=== PATIENT | female | born 1950 | race Caucasian/White ===

== ENCOUNTER 2017-04-02 15:31 | Inpatient (IN) | payer BC, MEDICARE ==
[~2017-04-02] VITALS: Ht 162.6 cm; Wt 66.7 kg
[2017-04-02] VITALS (16 sets, daily range): BP systolic 103; BP diastolic 56; PULSE 133; TEMP 99.4; O2SAT 92–95
[2017-04-02] MEDS ORDERED: TRAVATAN Z 2.52.5 ML OU (16:05)
[2017-04-02] MEDS ORDERED: CRESTOR20 MG PO (16:39)
[2017-04-02] MEDS ORDERED: UROCIT-K 5540 MG/TAB PO (16:41)
[2017-04-02] MEDS ORDERED: TRIUMEQ TAB PO (16:42)
[2017-04-02] MEDS ORDERED: ZANTAC 150MG T150 MG PO (16:43)
[2017-04-02] MEDS ORDERED: ASPIRIN 32325 MG/TAB PO (16:44)
[2017-04-02] MEDS ORDERED: COMBIGAN 0.2%-0.5 ML OU (16:45)
[2017-04-02 17:04] LABS: HEMATOCRIT 42.2 % (37.0-47.0); HEMOGLOBIN 14.6 g/dl (12.5-16.0); MEAN CELL VOLUME 100 fl (80.0-100.0); MEAN CORPUSCULAR HEMOGLOBIN 34 pg (27.0-31.0); MEAN CORPUSCULAR HGB CONC 35 g/dl (33.0-37.0); PLATELET COUNT 168 K/mm3 (130-400); RED BLOOD COUNT 4.24 M/mm3 (4.10-5.30); REDCELL DISTRIBUTION WIDTH-CV 12.2 % (11.5-14.5); WHITE BLOOD COUNT 7.1 K/mm3 (4.8-10.8)
[2017-04-02 17:08] LABS: ADD PATHOLOGY DIFF REVIEW NO
[2017-04-02 17:12] LABS: ADJUSTED CALCIUM 9.5 mg/dL (8.4-10.2); ALBUMIN 4.2 gm/dL (3.5-5.0); BILIRUBIN,TOTAL 1.2 mg/dL (0.0-1.0); C-REACTIVE PROTEIN 0.6 mg/dL (0.0-0.9); CALCIUM 9.7 mg/dL (8.4-10.2); CREATININE, serum 1.32 mg/dL (0.52-1.25); POTASSIUM 3.7 mmol/L (3.4-5.0); TOTAL PROTEIN 7.3 gm/dL (6.4-8.2)
[2017-04-02 17:31] LABS: PH 9 (5-8); SQUAMOUS EPITHELIAL 0-2 /hpf; URINE APPEARANCE Clear; URINE BACTERIA None Seen /hpf; URINE BILIRUBIN Negative (NEGATIVE); URINE BLOOD Negative (NEGATIVE); URINE COLOR Yellow; URINE GLUCOSE Negative (NEGATIVE); URINE KETONE Negative (NEGATIVE); URINE RBC 0-2 /hpf; URINE UROBILINOGEN Negative (NEGATIVE)
[2017-04-02 17:44] LABS: BAND 25 % (0-10); BASOPHIL 1 % (0-2); EOSINOPHIL 1 % (0-4); METAMYELOCYTE 2 % (0-0); NEUTROPHILS 64 % (42.0-75.2); PLATELET ESTIMATE NORMAL (NORMAL); TOTAL CELLS COUNTED 100
[2017-04-02 17:46] LABS: TOXIC GRANULATION PRESENT
[2017-04-02] MEDS ORDERED: LEVAQUIN 750MG750 M1 PO (18:02)
[2017-04-02] MEDS ORDERED: ZOFRAN ODT4 MG PO (18:02)
[2017-04-02 19:07] LABS: INFLUENZA B NEGATIVE
[2017-04-03] VITALS (1352 sets, daily range): BP systolic 75–115; BP diastolic 49–75; PULSE 70–118; TEMP 97–99.4; O2SAT 81–98
[2017-04-03] MEDS ORDERED: VITAMIN D32000 IU PO (00:25)
[2017-04-03 06:12] LABS: MEAN CELL VOLUME 101 fl (80.0-100.0); MEAN CORPUSCULAR HGB CONC 34 g/dl (33.0-37.0); MEAN PLATELET VOLUME 9.6 fl (7.4-10.4); PLATELET COUNT 121 K/mm3 (130-400); RED BLOOD COUNT 3.55 M/mm3 (4.10-5.30); WHITE BLOOD COUNT 19.6 K/mm3 (4.8-10.8)
[2017-04-03 06:14] LABS: HEMATOCRIT 35.9 % (37.0-47.0); HEMOGLOBIN 12.2 g/dl (12.5-16.0); MEAN CORPUSCULAR HEMOGLOBIN 34 pg (27.0-31.0)
[2017-04-03 06:15] LABS: ADD PATHOLOGY DIFF REVIEW NO
[2017-04-03 06:19] LABS: ADJUSTED CALCIUM 7.8 mg/dL (8.4-10.2); ALBUMIN 2.6 gm/dL (3.5-5.0); BILIRUBIN,TOTAL 0.8 mg/dL (0.0-1.0); CALCIUM 6.7 mg/dL (8.4-10.2); CREATININE, serum 1.37 mg/dL (0.52-1.25); TOTAL PROTEIN 5.2 gm/dL (6.4-8.2)
[2017-04-03 06:27] LABS: POTASSIUM 2.7 mmol/L (3.4-5.0)
[2017-04-03] MEDS ORDERED: VIRAMUNE XR400 MG PO (08:34)
[2017-04-03] MEDS ORDERED: EPZICOM PO (08:35)
[2017-04-03 08:52] LABS: BAND 31 % (0-10); METAMYELOCYTE 4 % (0-0); MYELOCYTE 9 % (0-0); NEUTROPHILS 54 % (42.0-75.2); PLATELET ESTIMATE NORMAL (NORMAL); TOTAL CELLS COUNTED 100
[2017-04-03 13:48] LABS: ARTERIAL BLD GAS O2 SATURATION 91.3 % (92-100); ARTERIAL BLD GAS TCO2 CT 17.3; ARTERIAL BLOOD GAS BASE EXCESS -6.4 (-2-2); ARTERIAL BLOOD GAS HCO3 16.5 meq/L (22-26); ARTERIAL BLOOD GAS PHT 7.41 C (7.35-7.45); ARTERIAL BLOOD GAS PO2 55.8 mmHg (80-100); ARTERIAL BLOOD GAS PO2T 55.8 (80-100); ARTERIAL BLOOD GAS pH 7.41 (7.35-7.45); OXYHEMOGLOBIN 90.6 %
[2017-04-03 13:49] LABS: ATS? YES
[2017-04-03 14:23] LABS: HEMOGLOBIN 12.2 g/dl (12.5-16.0); MEAN CELL VOLUME 99 fl (80.0-100.0); MEAN CORPUSCULAR HEMOGLOBIN 35 pg (27.0-31.0); MEAN CORPUSCULAR HGB CONC 35 g/dl (33.0-37.0); MEAN PLATELET VOLUME 9.5 fl (7.4-10.4); PLATELET COUNT 113 K/mm3 (130-400); RED BLOOD COUNT 3.53 M/mm3 (4.10-5.30); REDCELL DISTRIBUTION WIDTH-CV 13.1 % (11.5-14.5)
[2017-04-03 14:26] LABS: HEMATOCRIT 35.1 % (37.0-47.0); WHITE BLOOD COUNT 26.4 K/mm3 (4.8-10.8)
[2017-04-03 14:27] LABS: ADD PATHOLOGY DIFF REVIEW NO
[2017-04-03 14:50] LABS: ADJUSTED CALCIUM 7.8 mg/dL (8.4-10.2); ALANINE AMINOTRANSFERASE 678 U/L (9-52); ALBUMIN 2.7 gm/dL (3.5-5.0); ALKALINE PHOSPHATASE 66 U/L (50-136); ANION GAP 9 mmol/L (7-16); BILIRUBIN,TOTAL 0.8 mg/dL (0.0-1.0); BLOOD UREA NITROGEN 19 mg/dL (7-17); CALCIUM 6.8 mg/dL (8.4-10.2); CARBON DIOXIDE 18 mmol/L (22-30); CHLORIDE 109 mmol/L (98-107); CREATININE, serum 1.28 mg/dL (0.52-1.25); GLUCOSE 177 mg/dL (74-106); POTASSIUM 3.7 mmol/L (3.4-5.0); SODIUM 135 mmol/L (137-145); TOTAL PROTEIN 5.3 gm/dL (6.4-8.2)
[2017-04-03 14:58] LABS: B-TYPE NATRIURETIC PEPTIDE 6190 pg/mL (0-125)
[2017-04-03 15:32] LABS: BILIRUBIN,DIRECT 0.6 mg/dL (0.0-0.4)
[2017-04-03 16:20] LABS: ACETAMINOPHEN < 10 ug/mL (10-30)
[2017-04-03 17:00] LABS: BAND 35 % (0-10); METAMYELOCYTE 3 % (0-0); NEUTROPHILS 53 % (42.0-75.2); PLATELET ESTIMATE DECREASED (NORMAL)
[2017-04-03 17:05] LABS: DOHLE BODIES PRESENT; TOXIC GRANULATION PRESENT
[2017-04-03 17:06] LABS: TOTAL CELLS COUNTED 100
[2017-04-03 17:26] LABS: VENOUS BLOOD GAS BE -6.3 (-4-4); VENOUS BLOOD GAS SAO2 61.9 % (60-80)
[2017-04-03 17:27] LABS: SALICYLATE < 1.0 mg/dL
[2017-04-03 17:27] LABS: VENOUS BLOOD GAS SITE CENTRAL LINE
[2017-04-03 21:03] LABS: VENOUS BLOOD GAS BE -8.2 (-4-4); VENOUS BLOOD GAS SAO2 60.6 % (60-80)
[2017-04-03 21:04] LABS: VENOUS BLOOD GAS SITE CENTRAL LINE
[2017-04-04] VITALS (810 sets, daily range): BP systolic 98–121; BP diastolic 54–73; PULSE 65–93; TEMP 97.6–98.5; O2SAT 78–98
[2017-04-04 01:12] LABS: VENOUS BLOOD GAS BE -6.4 (-4-4); VENOUS BLOOD GAS SAO2 62.2 % (60-80); VENOUS BLOOD GAS SITE CENTRAL LINE
[2017-04-04 04:44] LABS: ARTERIAL BLD GAS O2 SATURATION 94.9 % (92-100); ARTERIAL BLD GAS TCO2 CT 17.4; ARTERIAL BLOOD GAS BASE EXCESS -7.5 (-2-2); ARTERIAL BLOOD GAS HCO3 16.5 meq/L (22-26); ARTERIAL BLOOD GAS PHT 7.37 C (7.35-7.45); ARTERIAL BLOOD GAS PO2 72.5 mmHg (80-100); ARTERIAL BLOOD GAS PO2T 72.5 (80-100); ARTERIAL BLOOD GAS pH 7.37 (7.35-7.45); OXYHEMOGLOBIN 94.3 %
[2017-04-04 04:44] LABS: VENOUS BLOOD GAS BE -7.4 (-4-4); VENOUS BLOOD GAS SAO2 66.2 % (60-80)
[2017-04-04 04:46] LABS: ALLEN TEST YES; ALLENS TEST RESULT PASS; ATS? YES
[2017-04-04 04:46] LABS: VENOUS BLOOD GAS SITE CENTRAL LINE
[2017-04-04 04:55] LABS: MEAN CELL VOLUME 100 fl (80.0-100.0); MEAN CORPUSCULAR HGB CONC 34 g/dl (33.0-37.0); MEAN PLATELET VOLUME 10.3 fl (7.4-10.4); PLATELET COUNT 87 K/mm3 (130-400); RED BLOOD COUNT 3.41 M/mm3 (4.10-5.30); REDCELL DISTRIBUTION WIDTH-CV 13.4 % (11.5-14.5)
[2017-04-04 04:59] LABS: ADD PATHOLOGY DIFF REVIEW NO; HEMATOCRIT 34.2 % (37.0-47.0); HEMOGLOBIN 11.7 g/dl (12.5-16.0); MEAN CORPUSCULAR HEMOGLOBIN 34 pg (27.0-31.0); WHITE BLOOD COUNT 21.4 K/mm3 (4.8-10.8)
[2017-04-04 05:00] LABS: INR 1.9 (0.8-3.0); PROTHROMBIN TIME 21.6 SECONDS (9.7-12.8)
[2017-04-04 05:09] LABS: ADJUSTED CALCIUM 7.9 mg/dL (8.4-10.2); ALBUMIN 2.6 gm/dL (3.5-5.0); CALCIUM 6.8 mg/dL (8.4-10.2); CREATININE, serum 1.02 mg/dL (0.52-1.25); POTASSIUM 3.5 mmol/L (3.4-5.0); TOTAL PROTEIN 5.4 gm/dL (6.4-8.2)
[2017-04-04 09:34] LABS: BAND 56 % (0-10); EOSINOPHIL 1 % (0-4); METAMYELOCYTE 1 % (0-0); NEUTROPHILS 32 % (42.0-75.2); PLATELET ESTIMATE DECREASED (NORMAL); TOTAL CELLS COUNTED 100
[2017-04-04 14:06] LABS: VENOUS BLOOD GAS BE -7.2 (-4-4); VENOUS BLOOD GAS SAO2 73.8 % (60-80); VENOUS BLOOD GAS SITE CENTRAL LINE
[2017-04-04 19:29] LABS: VENOUS BLOOD GAS BE -5.6 (-4-4); VENOUS BLOOD GAS SAO2 67.9 % (60-80)
[2017-04-04 19:30] LABS: VENOUS BLOOD GAS SITE CENTRAL LINE
[2017-04-05] VITALS (80 sets, daily range): BP systolic 106–131; BP diastolic 58–86; PULSE 72–91; TEMP 97.4–98.2; O2SAT 91–97
[2017-04-05 04:53] LABS: BASO # 0.2 (0.0-0.2); BASO % 0.6 % (0.0-2.0); GRAN # 26.3 (1.4-6.5); GRAN % 93.3 % (42.2-75.2); LYMPH # 0.7 (1.2-3.4); LYMPH % 2.4 % (20.0-51.0); MEAN CELL VOLUME 98 fl (80.0-100.0); MEAN CORPUSCULAR HGB CONC 35 g/dl (33.0-37.0); MEAN PLATELET VOLUME 10.6 fl (7.4-10.4); MONO # 0.9 (0.1-0.6); MONO % 3.2 % (1.7-9.3); PLATELET COUNT 106 K/mm3 (130-400); REDCELL DISTRIBUTION WIDTH-CV 13.5 % (11.5-14.5)
[2017-04-05 04:54] LABS: HEMATOCRIT 31.3 % (37.0-47.0); HEMOGLOBIN 10.9 g/dl (12.5-16.0); MEAN CORPUSCULAR HEMOGLOBIN 34 pg (27.0-31.0); WHITE BLOOD COUNT 28.3 K/mm3 (4.8-10.8)
[2017-04-05 04:58] LABS: INR 1.2 (0.8-3.0); PROTHROMBIN TIME 13.8 SECONDS (9.7-12.8)
[2017-04-05 05:03] LABS: ADJUSTED CALCIUM 8.7 mg/dL (8.4-10.2); ALBUMIN 2.5 gm/dL (3.5-5.0); BILIRUBIN,TOTAL 0.5 mg/dL (0.0-1.0); CALCIUM 7.5 mg/dL (8.4-10.2); CREATININE, serum 0.95 mg/dL (0.52-1.25); MAGNESIUM 1.8 mg/dL (1.6-2.3); PHOSPHOROUS 1.4 mg/dL (2.5-4.5); TOTAL PROTEIN 5.2 gm/dL (6.4-8.2)
[2017-04-05 05:51] LABS: VENOUS BLOOD GAS BE -5.4 (-4-4); VENOUS BLOOD GAS SAO2 73.4 % (60-80); VENOUS BLOOD GAS SITE CENTRAL LINE
[2017-04-06 02:20] VITALS: BP 123/69; PULSE 86; TEMP 97.5
[2017-04-06 05:29] LABS: BASO # 0.2 (0.0-0.2); BASO % 0.7 % (0.0-2.0); EOS # 0.1 (0.0-0.7); EOS % 0.4 % (0-4.0); GRAN # 18.8 (1.4-6.5); GRAN % 80.1 % (42.2-75.2); LYMPH # 2.2 (1.2-3.4); LYMPH % 9.5 % (20.0-51.0); MEAN CELL VOLUME 96 fl (80.0-100.0); MEAN CORPUSCULAR HGB CONC 36 g/dl (33.0-37.0); MEAN PLATELET VOLUME 9.8 fl (7.4-10.4); MONO # 1.6 (0.1-0.6); MONO % 6.9 % (1.7-9.3); PLATELET COUNT 122 K/mm3 (130-400); RED BLOOD COUNT 3.27 M/mm3 (4.10-5.30); REDCELL DISTRIBUTION WIDTH-CV 13.4 % (11.5-14.5)
[2017-04-06 05:33] LABS: HEMATOCRIT 31.4 % (37.0-47.0); HEMOGLOBIN 11.2 g/dl (12.5-16.0); MEAN CORPUSCULAR HEMOGLOBIN 34 pg (27.0-31.0); WHITE BLOOD COUNT 23.5 K/mm3 (4.8-10.8)
[2017-04-06 05:36] LABS: INR 1.1 (0.8-3.0); PROTHROMBIN TIME 12.3 SECONDS (9.7-12.8)
[2017-04-06 05:41] LABS: ADJUSTED CALCIUM 8.4 mg/dL (8.4-10.2); ALBUMIN 2.6 gm/dL (3.5-5.0); BILIRUBIN,TOTAL 0.6 mg/dL (0.0-1.0); CALCIUM 7.3 mg/dL (8.4-10.2); CREATININE, serum 0.93 mg/dL (0.52-1.25); TOTAL PROTEIN 5.5 gm/dL (6.4-8.2)
[2017-04-06 06:03] LABS: POTASSIUM 2.8 mmol/L (3.4-5.0)
[2017-04-06 06:08] VITALS: BP 145/70; PULSE 81; TEMP 97.5
[2017-04-06 09:41] VITALS: BP 132/72; PULSE 87; TEMP 97.2
[2017-04-06 11:27] LABS: PHOSPHOROUS 0.9 mg/dL (2.5-4.5)
[2017-04-06 13:31] VITALS: BP 134/76; PULSE 81; TEMP 97.7
[2017-04-06 17:34] VITALS: BP 138/80; PULSE 84; TEMP 97.6
[2017-04-06 22:16] VITALS: BP 119/74; PULSE 88; TEMP 98.5
[2017-04-07 05:25] LABS: ADD PATHOLOGY DIFF REVIEW NO
[2017-04-07 05:28] LABS: MEAN CELL VOLUME 97 fl (80.0-100.0); MEAN CORPUSCULAR HGB CONC 35 g/dl (33.0-37.0); MEAN PLATELET VOLUME 9.8 fl (7.4-10.4); PLATELET COUNT 132 K/mm3 (130-400); RED BLOOD COUNT 3.51 M/mm3 (4.10-5.30); REDCELL DISTRIBUTION WIDTH-CV 13.6 % (11.5-14.5); WHITE BLOOD COUNT 15.3 K/mm3 (4.8-10.8)
[2017-04-07 05:31] LABS: HEMATOCRIT 33.9 % (37.0-47.0); HEMOGLOBIN 11.9 g/dl (12.5-16.0); MEAN CORPUSCULAR HEMOGLOBIN 34 pg (27.0-31.0)
[2017-04-07 05:47] LABS: BAND 4 % (0-10); EOSINOPHIL 2 % (0-4); NEUTROPHILS 53 % (42.0-75.2); TOTAL CELLS COUNTED 100
[2017-04-07 05:48] LABS: ANISOCYTOSIS 1+; HYPOCHROMIA 1+; MICROCYTOSIS 2+; POIKILOCYTOSIS 1+; POLYCHROMASIA 1+; TARGET CELLS 1+
[2017-04-07 05:49] LABS: ADJUSTED CALCIUM 8.7 mg/dL (8.4-10.2); ALBUMIN 2.8 gm/dL (3.5-5.0); BILIRUBIN,TOTAL 0.6 mg/dL (0.0-1.0); CALCIUM 7.7 mg/dL (8.4-10.2); CREATININE, serum 0.88 mg/dL (0.52-1.25); MAGNESIUM 1.9 mg/dL (1.6-2.3); POTASSIUM 3.6 mmol/L (3.4-5.0); TOTAL PROTEIN 5.8 gm/dL (6.4-8.2)
[2017-04-07 06:32] VITALS: BP 142/73; PULSE 86; TEMP 97.6
[2017-04-07] MEDS ORDERED: K-DUR20 MEQ PO (09:04)
[2017-04-07] MEDS ORDERED: LEVAQUIN 750MG750 M1 PO (09:08)
[2017-04-07 09:51] VITALS: BP 144/81; PULSE 89; TEMP 98.1
[2017-04-07] MEDS ORDERED: PHOSPHA 250 NEU1 TAB PO (10:24)
== END 2017-04-07 12:15 | disposition home or self-care (01) | DRG 871 ==
LOC: COL.ER 15:31 → ICU 21:50 → JCC 21:50
PROVIDERS: Family Medicine; Internal Medicine; Internal Medicine Cardiovascular Disease; Internal Medicine Pulmonary Disease; Urology
PROC: 0T778DZ Dilation of Left Ureter with Intraluminal Device, Via Natural or Artificial Opening Endoscopic (ICD-10-PCS; principal; 2017-04-02 23:00)
PROC: BT1FZZZ Fluoroscopy of Left Kidney, Ureter and Bladder (ICD-10-PCS; 2017-04-02 23:00)
DX: A41.51 Sepsis due to Escherichia coli [E. coli] (principal); K72.00 Acute and subacute hepatic failure without coma; R65.21 Severe sepsis with septic shock; J81.0 Acute pulmonary edema; N20.1 Calculus of ureter; N17.9 Acute kidney failure, unspecified; N13.6 Pyonephrosis; N10 Acute pyelonephritis; E87.2 Acidosis; J90 Pleural effusion, not elsewhere classified; E87.1 Hypo-osmolality and hyponatremia; B96.20 Unspecified Escherichia coli [E. coli] as the cause of diseases classified elsewhere; Z21 Asymptomatic human immunodeficiency virus [HIV] infection status; E87.6 Hypokalemia
CPT/HCPCS: 99222-AI; 99232-AI; 99233-AI; 99239; A9284; C1751; C1769; C2617; J0690; J0696; J1170; J1644; J1650; J1720; J1940; J1956; J2185; J2250; J2405; J2543; J2704; J3010; J3370; J3475; J3480; J7030; J7050; J7060; Q9967